=== PATIENT | male | born 1985 | race Caucasian/White ===

== ENCOUNTER 2017-10-08 04:41 | Emergency (ER) | payer SELFPAY ==
--- NOTE | 2017-10-08 05:02 | PDOC ---
History of Present Illness - General Chief Complaint: Diarrhea Stated Complaint: WEAKNESS Time Seen by Provider: 10/08/17 04:47 - History of Present Illness Initial Comments: 31 year old male presenting with nausea, vomiting, and diarrhea for less than 24 hours that has already improved. States that his girlfriend and him both had rte same symptoms that came on within hours of each other but his were more diarrhea predominant. He had a few episodes of nbnb vomiting and multiple episodes of nb diarrhea. Had some leg myalgias when climbing a set of stairs but denied other symptoms. Denied fevers, chills, sob, chest pain, or other symptoms. 10/08/17 05:09 Past History - Past Medical History Allergies/Adverse Reactions: Allergies Allergy/AdvReac Type Severity Reaction Status Date / Time No Known Allergies Allergy Verified 10/08/17 04:55 Home Medications: Ambulatory Orders NK [No Known Home Medication] 06/14/16 - Suicide/Smoking/Psychosocial Hx Smoking History: Current some day smoker Have you smoked in the past 12 months: No Number of Cigarettes Smoked Daily: 2 Information on smoking cessation initiated: No Hx Alcohol Use: No Drug/Substance Use Hx: Yes ([facility]) Substance Use Type: Marijuana Review of Systems - Review of Systems Constitutional: Yes: Loss of Appetite, Weakness. No: Chills, Diaphoresis, Fever HEENTM: No: Blurred Vision, Recent change in vision Respiratory: No: Cough, Shortness of Breath Cardiac (ROS): Yes: Lightheadedness. No: Chest Pain, Irregular Heart Rate ABD/GI: Yes: Diarrhea, Nausea, Poor Appetite, Vomiting. No: Rectal Bleeding : No: Dysuria, Discharge, Frequency, Hematuria Musculoskeletal: No: Back Pain Integumentary: No: Change in Color, Lesions, Lumps Neurological: No: Headache, Numbness, Paresthesia Psychiatric: No: Anxiety, Depression *Physical Exam - Vital Signs Last Vital Signs Temp Pulse Resp BP Pulse Ox 98.3 F 112 H 14 148/96 98 10/08/17 04:56 10/08/17 04:56 10/08/17 04:56 10/08/17 04:56 10/08/17 04:56 - Physical Exam General Appearance: Yes: Nourished, Appropriately Dressed. No: Apparent Distress HEENT: positive: EOMI, LIZA, Normal ENT Inspection, Normal Voice, Pharynx Normal Neck: positive: Trachea midline, Normal Thyroid, Supple. negative: Tender, Rigid Respiratory/Chest: positive: Lungs Clear, Normal Breath Sounds. negative: Chest Tender, Respiratory Distress, Accessory Muscle Use Cardiovascular: positive: Regular Rhythm, Tachycardia. negative: Regular Rate Gastrointestinal/Abdominal: positive: Normal Bowel Sounds, Flat, Soft. negative : Tender Musculoskeletal: positive: Normal Inspection. negative: Decreased Range of Motion Extremity: positive: Normal Capillary Refill, Normal Inspection, Normal Range of Motion. negative: Tender Integumentary: positive: Normal Color, Dry, Warm Neurologic: positive: Fully Oriented, Alert, Normal Mood/Affect, Normal Response , Motor Strength 5/5 Medical Decision Making - Medical Decision Making Young healthy male, who by his own admission feels much better than earlier and is tolerating fluids now after what was seemingly a viral gastroenteritis with a few episodes of NBNB vomiting and NB diarrhea. He states the is much better and would like to be discharged so he can be in the same room as his girlfriend who has the same symptoms. His slight tachycardia is likely from dehydration and lack of sleep. The patient is completely asymptomatic otherwise and was counseled on the risks benefits of discharge and seems to be a safe discharge overall. He tolerated a PO challenge with fluids and a turkey sandwich prior to discharge. Given return precautions. 10/08/17 05:25 *DC/Admit/Observation/Transfer Diagnosis at time of Disposition: Viral gastroenteritis - Discharge Dispostion Disposition: HOME Condition at time of disposition: Improved Admit: No - Referrals Referrals: Sharif Dykes MD [Primary Care Provider] - - Patient Instructions Printed Discharge Instructions: DI for Viral Gastroenteritis -- Adult Additional Instructions: Please drink plenty of fluids and use Tylenol for any pains or fevers that you may have. Take it slow with your diet and start with soups. Please wash your hands thoroughly with soap and water after using the bathroom and before interacting with your children as this is likely an infection that can be spread from person to person. Please return to the ED if you have new or worsening symptoms. - Post Discharge Activity
[2017-10-08 05:09] VITALS: BP 148/96; PULSE 112; TEMP 98.3; BMI 27.8
== END 2017-10-08 05:52 | disposition home or self-care (01) ==
LOC: JER 04:41
DX: A08.4 Viral intestinal infection, unspecified (principal); B97.89 Other viral agents as the cause of diseases classified elsewhere; F17.210 Nicotine dependence, cigarettes, uncomplicated
CPT/HCPCS: 99281-25

== ENCOUNTER 2018-07-12 09:33 | Emergency (ER) | payer OTHER ==
[2018-07-12 09:44] VITALS: BMI 27.6
--- NOTE | 2018-07-12 10:05 | PDOC ---
History of Present Illness - General Chief Complaint: Cold Symptoms Stated Complaint: THROAT PAIN Time Seen by Provider: 07/12/18 09:57 History Source: Patient Exam Limitations: No Limitations - History of Present Illness Initial Comments: 07/12/18 10:22 Patient is a 32-year-old male past medical history who presents to the emergency department today for throat pain. Patient states the symptoms started approximately 5 days ago. He states that yesterday he woke up and his throat was significantly worse. He states it hurts to swallow. He also states that he is unable to talk in full voice due to the pain. Admits to subjective fevers and headache. He states he took Tylenol with fever cage manager this morning. Denies difficulty breathing, shortness of breath, nausea, vomiting and diarrhea. Past History - Travel Traveled outside of the country in the last 30 days: No Close contact w/someone who was outside of country & ill: No - Past Medical History Allergies/Adverse Reactions: Allergies Allergy/AdvReac Type Severity Reaction Status Date / Time No Known Allergies Allergy Verified 07/12/18 09:39 Home Medications: Ambulatory Orders NK [No Known Home Medication] 06/14/16 COPD: No Other medical history: DENIES. - Suicide/Smoking/Psychosocial Hx Smoking History: Current some day smoker Have you smoked in the past 12 months: Yes Number of Cigarettes Smoked Daily: 2 Cigars Per Day: 1 Information on smoking cessation initiated: No Hx Alcohol Use: No Drug/Substance Use Hx: Yes ([facility]) Substance Use Type: Marijuana Review of Systems - Review of Systems Able to Perform ROS?: Yes Comments:: 07/12/18 10:04 CONSTITUTIONAL: Absent: fever, chills, diaphoresis, generalized weakness, malaise, loss of appetite HEENT: Present: Throat pain Absent: rhinorrhea, nasal congestion, throat swelling, difficulty swallowing, mouth swelling, ear pain, eye pain, visual Changes CARDIOVASCULAR: Absent: chest pain, loss of consciousness, palpitations, irregular heart rate, peripheral edema RESPIRATORY: Absent: cough, shortness of breath, dyspnea with exertion, orthopnea, wheezing, stridor, hemoptysis GASTROINTESTINAL: Absent: abdominal pain, abdominal distension, nausea, vomiting, diarrhea, constipation, melena, hematochezia GENITOURINARY: Absent: dysuria, frequency, urgency, hesitancy, hematuria, flank pain, genital pain MUSCULOSKELETAL: Absent: myalgia, arthralgia, joint swelling SKIN: Absent: rash, itching, pallor HEMATOLOGIC/IMMUNOLOGIC: Absent: easy bleeding, easy bruising, lymphadenopathy, frequent infections ENDOCRINE: Absent: unexplained weight gain, unexplained weight loss, heat intolerance, cold intolerance NEUROLOGIC: Absent: headache, focal weakness or paresthesias, dizziness, unsteady gait, seizure, mental status changes, bladder or bowel incontinence PSYCHIATRIC: Absent: anxiety, depression, suicidal or homicidal ideation, hallucinations. Is the patient limited Nepali proficient: No *Physical Exam - Vital Signs Last Vital Signs Temp Pulse Resp BP Pulse Ox 99.3 F 109 H 19 135/76 98 07/12/18 09:39 07/12/18 09:39 07/12/18 09:39 07/12/18 09:39 07/12/18 09:39 - Physical Exam Comments: 07/12/18 10:04 GENERAL: Well developed, well nourished. Awake and alert. No acute distress. Muffled voice when speaking. HEENT: Normocephalic, atraumatic. PERRLA, EOMI. No conjunctival pallor. Sclera are non- icteric. Moist mucous membranes. Oropharynx is erythematous and edematous. No exudate noted. Uvula is displaced to the Left, QUILL FIXER appearance above the R tonsil. NECK: Supple. Full ROM. No JVD. Carotid pulses 2+ and symmetric, without bruits. No thyromegaly. No lymphadenopathy. CARDIOVASCULAR: Regular rate and rhythm. No murmurs, rubs, or gallops. Distal pulses are 2+ and symmetric. PULMONARY: No evidence of respiratory distress. Lungs clear to auscultation bilaterally. No wheezing, rales or rhonchi. SKIN: Warm and dry. Normal capillary refill. No rashes. No jaundice. NEUROLOGICAL: Alert, awake, appropriate. Cranial nerves 2-12 intact. No deficits to light touch and temperature in face, upper extremities and lower extremities. No motor deficits in the in face, upper extremities and lower extremities. Normoreflexic in the upper and lower extremities. Normal speech. Toes are down- going bilaterally. Gait is normal without ataxia. Moderate Sedation - Procedure Monitoring Vital Signs: Procedure Monitoring Vital Signs Temperature 99.3 F 07/12/18 09:39 Pulse Rate 109 H 07/12/18 09:39 Respiratory Rate 19 07/12/18 09:39 Blood Pressure 135/76 07/12/18 09:39 O2 Sat by Pulse Oximetry (%) 98 07/12/18 09:39 Medical Decision Making - Medical Decision Making 07/12/18 10:25 Patient is a 32-year-old male who presents to the ER with 5 days of sore throat , worsening today. On exam patient with QUILL FIXER appearance above the right tonsil. Uvula is deviated to the left. Vital signs stable patient is currently afebrile. Last took Tylenol at 6 AM this morning. Patient will need drainage of his QUILL FIXER. Sign out given to Dr. Angel and charge nurse Dennise. Pt is stable to FT to ED transfer. *DC/Admit/Observation/Transfer Diagnosis at time of Disposition: Throat pain - Referrals Referrals: Sharif Dykes MD [Primary Care Provider] - - Patient Instructions - Post Discharge Activity
--- NOTE | 2018-07-12 10:20 | PDOC ---
*Physical Exam - Vital Signs Last Vital Signs Temp Pulse Resp BP Pulse Ox 99.3 F 109 H 19 135/76 98 07/12/18 09:39 07/12/18 09:39 07/12/18 09:39 07/12/18 09:39 07/12/18 09:39 Medical Decision Making - Medical Decision Making 07/12/18 10:20 Patient signout taken from WASHINGTON Gongora for further evaluation. Patient is a 32 yo male w/ no significant pmh who presents for evaluation of 1 week of sore throat w/ additional fevers/chills x1 day. Upon interview patient' s girlfriend who is with him endorses having strep throat a few weeks ago for which she took antibiotics however Mr. Witt was not evaluated. Upon exam by [place] patient noted to have R SUPERVISOR LEAF SPRING FABRICATION w/ some uvula deviation to L side. Fluctuant mass noted. Attempted to drain using topical lidocaine for anesthetic w/ needle aspiration. 3 attempts made with no successful evacuation. Unable to evaluate w / US due to patient's inability to open mouth. Giving Dexamethasone IV clindamycin for temporizing treatment. Page placed to ENT. 07/12/18 12:00 Discussed patient with ENT (Dr. Lira) who will see in office directly. Discussed with patient who will head straight there. Discharging for immediate outpatient evaluation. *DC/Admit/Observation/Transfer Diagnosis at time of Disposition: Throat pain, Abscess, peritonsillar - Discharge Dispostion Disposition: HOME - Prescriptions Prescriptions: Amoxicillin/Potassium Clav [Augmentin 875-125 Tablet] 1 each PO BID #14 tablet - Referrals Referrals: Sharif Dykes MD [Primary Care Provider] - Liang Lira MD [Staff Physician] - - Patient Instructions Additional Instructions: You were evaluated today in the ER for your throat pain and found to have a peritonsilar abscess with additional positive strep throat test. We attempted to drain this however were unsuccessful. We gave you 10mg dexamethasone and 600 mg clindamycin IV. We have also proscribed you an antibiotic for home use ( Augmentin 875 BID for 1 week). Follow-up directly with ENT as discussed immediately after leaving ER. Follow all directions given by ENT physician. Return to ER if any fevers, chills, difficulty taking medications, or other concerning symptoms. - Post Discharge Activity
[2018-07-12] MEDS ORDERED: TETRACAINE/BENZOCAINE/BUTAMBEN 20 GM SPR TP ONE (10:39)
[2018-07-12] MEDS ORDERED: IBUPROFEN 100 MG/5 ML UNIT DOSE CUPS PO ONE (10:42)
--- NOTE | 2018-07-12 10:48 | PDOC ---
Attending Attestation - Resident Resident Name: Ryan Lugo - ED Attending Attestation I have performed the following: I have examined & evaluated the patient, The case was reviewed & discussed with the resident, I agree w/resident's findings & plan, Exceptions are as noted - HPI HPI: 32 yo M presents with sore throat. Girlfriend at bedside with recent strep throat, then he developed a sore throat. Presents today because he developed difficulty swallowing and pain. +Voice changes. Able to open his mouth. - Physicial Exam PE: GENERAL: Awake, alert, and fully oriented, in no acute distress HEAD: No signs of trauma EYES: PERRLA, EOMI, sclera anicteric, conjunctiva clear ENT: Auricles normal inspection, hearing grossly normal, nares patent, oropharynx erythematous, with uvula shifted to the left, +peritonsillar swelling. NECK: Normal ROM, supple, no lymphadenopathy, JVD, or masses LUNGS: Breath sounds equal, clear to auscultation bilaterally. No wheezes, and no crackles HEART: Regular rate and rhythm, normal S1 and S2, no murmurs, rubs or gallops ABDOMEN: Soft, nontender, normoactive bowel sounds. No guarding, no rebound. No masses EXTREMITIES: Normal range of motion, no edema. No clubbing or cyanosis. No cords, erythema, or tenderness NEUROLOGICAL: Cranial nerves II through XII grossly intact. Normal speech, normal gait SKIN: Warm, Dry, normal turgor, no rashes or lesions noted. - Medical Decision Making Suspected ILLUMINATOR. Patient unable to tolerate ultrasound, however, he has a fluctuant area to the superior tonsillar pole on R. Attempted to drain x3, unsuccessful.
[2018-07-12] MEDS ORDERED: IBUPROFEN 100 MG/5 ML UNIT DOSE CUPS ONE (10:57)
[2018-07-12] MEDS ORDERED: CLINDAMYCIN 600MG PREMIX IVPB 600 MG/50 ML BAG IVPB ONE ×2 (11:32→11:36)
[2018-07-12] MEDS ORDERED: DEXAMETHASONE LIQUID 0.5 MG/5 ML 240 ML BULK BOTTLE PO ONE (11:32)
[2018-07-12] MEDS ORDERED: DEXAMETHASONE SOD PHOSPHATE 10 MG/1 ML VIAL ONE (11:35)
[2018-07-12 12:20] VITALS: BP 136/89; PULSE 88; TEMP 98.3
== END 2018-07-12 12:20 | disposition home or self-care (01) ==
LOC: JER 09:33
DX: J02.9 Acute pharyngitis, unspecified (principal)
CPT/HCPCS: 87880; 99282-25

== ENCOUNTER 2018-10-24 10:50 | Emergency (ER) | payer OTHER ==
[2018-10-24 10:54] VITALS: BP 136/90; PULSE 83; TEMP 98.5; BMI 27.1
[2018-10-24] MEDS ORDERED: DEXAMETHASONE LIQUID 0.5 MG/5 ML 240 ML BULK BOTTLE PO ONE (11:21)
[2018-10-24] MEDS ORDERED: IBUPROFEN 400 MG TABLET (FP) PO ONE ×2 (11:21→11:23)
[2018-10-24] MEDS ORDERED: DEXAMETHASONE SOD PHOSPHATE 10 MG/1 ML VIAL ONE (11:23)
--- NOTE | 2018-10-24 11:47 | PDOC ---
History of Present Illness - General Chief Complaint: Sore Throat Stated Complaint: SORE THROAT Time Seen by Provider: 10/24/18 11:04 History Source: Patient Exam Limitations: No Limitations Past History - Past Medical History Allergies/Adverse Reactions: Allergies Allergy/AdvReac Type Severity Reaction Status Date / Time No Known Allergies Allergy Verified 10/24/18 10:54 Home Medications: Ambulatory Orders Amox-Tr/K Cl [Augmentin - 875Mg Tablet] 1 tab PO BID #20 tablet 07/19/18 COPD: No - Suicide/Smoking/Psychosocial Hx Smoking History: Never smoked Have you smoked in the past 12 months: No Number of Cigarettes Smoked Daily: 2 Cigars Per Day: 1 Information on smoking cessation initiated: No Hx Alcohol Use: No Drug/Substance Use Hx: No Substance Use Type: Marijuana *Physical Exam - Vital Signs Last Vital Signs Temp Pulse Resp BP Pulse Ox 98.5 F 83 18 136/90 100 10/24/18 10:52 10/24/18 10:52 10/24/18 10:52 10/24/18 10:52 10/24/18 10:52 - Physical Exam General Appearance: No: Apparent Distress HEENT: positive: Tonsillar Exudate, Tonsillar Erythema, Other (No tonsillar exudates, no uvula deviation). negative: Muffled/Hoarse voice, Nasal Congestion , Rhinorrhea Respiratory/Chest: positive: Lungs Clear, Normal Breath Sounds. negative: Respiratory Distress Cardiovascular: positive: Regular Rhythm, Regular Rate, S1, S2. 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 Mentions he had some leftover Augmentin from prior throat infection so started taking that yesterday in case this was possibly strep. Also mentions his daughters had strep infection around 2 weeks ago. Denies other URI sxs, n/v, abd pain, sob, cp Plan: Rapid strep, decadron, motrin 10/24/18 11:43 Rapid strep negative No exudates noted, no evidence of MACHINE REPAIRER MAINTENANCE Likely viral pharyngitis 10/24/18 12:14 *DC/Admit/Observation/Transfer Diagnosis at time of Disposition: Tonsillitis - Discharge Dispostion Disposition: HOME Condition at time of disposition: Stable Decision to Admit order: No - Referrals Referrals: Sharif Dykes MD [Primary Care Provider] - 2 Days - Patient Instructions Printed Discharge Instructions: DI for Pharyngitis/Tonsillopharyngitis -- Adult Additional Instructions: Thank you for choosing [facility]. It was a pleasure taking care of you. You were tested negative for rapid strep If your throat culture is positive, you will get a callback Take Motrin as needed for pain Do salt water gargles Follow-up with your doctor in 2-3 days Return to the Emergency Department if your symptoms worsen or persist or have other concerning symptoms. - Post Discharge Activity
== END 2018-10-24 12:20 | disposition home or self-care (01) ==
LOC: JERFT 10:50
DX: J03.90 Acute tonsillitis, unspecified (principal)
CPT/HCPCS: 87070; 87880; 99281-25

== ENCOUNTER 2019-04-08 13:01 | Emergency (ER) | payer OTHER | END 2019-04-08 14:03 | disposition home or self-care (01) | LOC: JERFT 13:01 ==